=== PATIENT | male | born 1945 | race Caucasian/White ===

== ENCOUNTER 2024-02-14 09:00 | Day surgery (SDC) | payer OTHER ==
[~2024-02-14] VITALS: Ht 175.3 cm; Wt 72.0 kg
[~2024-02-14 09:00] MED LIST: Lactated Ringer's 1,000 ML IV ONE
[2024-02-14] MEDS ORDERED: TAMS.4ER (09:52)
[2024-02-14] MEDS ORDERED: Lactated Ringer's 1,000 ML IV ONE (10:05)
[2024-02-14] MEDS ORDERED: FentaNYL Citrate 50 MCG/ML 2 ML Injection ONE (10:07)
[2024-02-14] MEDS ORDERED: propofoL 20 ML IV ONE (10:07)
[2024-02-14] MEDS ORDERED: CeFAZolin Sodium 2,000 MG VIAL ONE (10:30)
[2024-02-14] MEDS ORDERED: NS 50 ML IV ONE (10:32)
[2024-02-14] MEDS ORDERED: Lidocaine 2%-Epineph 1:100000 20 ML MDV INJ ONE (11:13)
[2024-02-14] MEDS ORDERED: EPINEPhrine HCl 1 MG/ML 1ML Amp XX ONE (11:13)
--- NOTE | 2024-02-14 11:18 | NUR ---
02/14/24 1118 Raymond Blake 1 MG EPI ADDED TO THE FIRST BAG OR LR FOR IRRIGATION AT [facility].
--- NOTE | 2024-02-14 11:57 | NUR ---
02/14/24 1157 ABRIL VIDALES LMA OUT AT 1150. UPPER DENTURE CAME OUT WITH LMA. PLACED ON COUNTER UNTIL PT IS MORE AWAKE.
--- NOTE | 2024-02-14 12:14 | NUR ---
02/14/24 1214 ABRIL VIDALES THROAT SORE/SCRATCHY ONLY WHEN HE SWALLOWS. 09/19. PT ABLE TO DRINK WO DIFF.
[2024-02-14 12:27] VITALS: BP 134/80
== END 2024-02-14 13:10 | disposition home or self-care (01) ==
LOC: ORSCSDS 09:00
PROVIDERS: Orthopaedic Surgery
PROC: 0SQD4ZZ Repair Left Knee Joint, Percutaneous Endoscopic Approach (ICD-10-PCS; principal; 2024-02-14 11:10)
PROC: 0SBD4ZZ Excision of Left Knee Joint, Percutaneous Endoscopic Approach (ICD-10-PCS; principal; 2024-02-14 11:10)
DX: S83.242A Other tear of medial meniscus, current injury, left knee, initial encounter (principal); S83.282A Other tear of lateral meniscus, current injury, left knee, initial encounter; M22.42 Chondromalacia patellae, left knee; F17.210 Nicotine dependence, cigarettes, uncomplicated; Z79.899 Other long term (current) drug therapy
CPT/HCPCS: J0171; J0690; J2704; J3010; J7120

== ENCOUNTER 2024-10-23 07:02 | Day surgery (SDC) | payer MEDICARE ==
[~2024-10-23] VITALS: Ht 175.3 cm; Wt 69.0 kg
[2024-10-23 13:33] VITALS: BP 133/65
== END 2024-10-23 13:23 | disposition home or self-care (01) ==
LOC: ORSCSDS 07:02
PROC: 09R Ear, Nose, Sinus, Replacement (ICD-10-PCS; principal; 2024-10-23)
PROC: 0NR507Z Replacement of Right Temporal Bone with Autologous Tissue Substitute, Open Approach (ICD-10-PCS; principal; 2024-10-23)
DX: H71.91 Unspecified cholesteatoma, right ear (principal); F17.210 Nicotine dependence, cigarettes, uncomplicated; Z79.899 Other long term (current) drug therapy

== ENCOUNTER 2025-06-09 06:16 | Day surgery (SDC) | payer MEDICARE ==
[~2025-06-09] VITALS: Ht 172.7 cm; Wt 70.2 kg
[~2025-06-09 06:16] MED LIST changes: -Lactated Ringer's 1,000 ML IV ONE; +MELO7.5 PO; +TAMS.4ER; +THERA-D2000 UNIT PO; +Voltaren100 GM TOP
[2025-06-09] MEDS ORDERED: MYRBETRIQ50 MG PO (06:45)
[2025-06-09] MEDS ORDERED: Lidocaine 1%-Epineph 1:200000 30 ML SDV ONE (06:51)
[2025-06-09] MEDS ORDERED: Triamcinolone Inj Susp 40 MG / ML 1ML Vial ONE (06:51)
[2025-06-09] MEDS ORDERED: Rocuronium Bromide 10 MG/ML 5ML Injection IV ONE (07:09)
[2025-06-09] MEDS ORDERED: FentaNYL Citrate 50 MCG/ML 2 ML Injection ONE (07:15)
[2025-06-09] MEDS ORDERED: Ondansetron HCl 2 MG / ML 2ML Vial ONE (07:48)
[2025-06-09] MEDS ORDERED: Dexamethasone Sod Phos 10 MG/ML 1ML VIAL ONE (07:48)
[2025-06-09] MEDS ORDERED: Phenylephrine HCl 100 MCG/ML-NS 10MLSYR (1MG/10ML) ONE (07:49)
[2025-06-09] MEDS ORDERED: ePHEDrine Sulfate 50 MG/ML 1ML Injection ONE (08:00)
--- NOTE | 2025-06-09 09:40 | NUR ---
06/09/25 0940 ABRIL VIDALES TRIAL FROM 8L O2 VIA NON-REBREATHER, TO 6L. OXYGEN RUNNING 100% PT STARTING TO WAKE UP MORE. WARM BLANKET PROVIDED. DENIES PAIN AND NAUSEA
[2025-06-09 10:07] VITALS: BP 134/72
--- NOTE | 2025-06-09 10:42 | NUR ---
06/09/25 1042 ABRIL VIDALES PT DID NOT COMPUTER TYPESETTER KEYLINER MEDICATION FROM THE [facility]. CONTACTED DR AMARAL OFFICE ABOUT MEDICATIONS. PT STATES CAN SEND MEDS TO [facility] [address] DR AMARAL WOULD NEED TO SEND IN NEW [facility] HE IS IN SURGERY. CALLING [facility] TO SEE IF THEY WERE WILLING TO FILL PT MEDICATIONS FOR PT. IF SO, THEN PT CAN GO TO [facility]. WE ARE GOING TO GIVE HIM A PO PAIN MEDICATION PRIOR TO DISCHARGE.
== END 2025-06-09 11:11 | disposition home or self-care (01) ==
LOC: ORSCSDS 06:16
PROVIDERS: Otolaryngology
PROC: 09W Ear, Nose, Sinus, Revision (ICD-10-PCS; principal; 2025-06-09 07:30)
DX: H71.91 Unspecified cholesteatoma, right ear (principal); H72.91 Unspecified perforation of tympanic membrane, right ear; F17.210 Nicotine dependence, cigarettes, uncomplicated; Z79.899 Other long term (current) drug therapy
CPT/HCPCS: A9270; C1763; J0166; J1100; J2371; J2405; J2704; J3010; J3301; J7120